=== PATIENT | female | born 1935 | race Caucasian/White ===

== ENCOUNTER 2019-02-10 17:00 | Emergency (ER) | payer MEDICARE, BC ==
[~2019-02-10] VITALS: Ht 162.6 cm; Wt 69.5 kg
[2019-02-10 17:12] VITALS: Ht 162.6 cm; Wt 69.5 kg
[2019-02-10] MEDS ORDERED: ZYRTEC10 MG PO (17:14)
[2019-02-10] MEDS ORDERED: CELEXA10 MG PO (17:14)
[2019-02-10] MEDS ORDERED: ZYLOPRIM100 MG PO (17:14)
[2019-02-10] MEDS ORDERED: FLORAJEN3 CAPS460 MG PO (17:15)
[2019-02-10] MEDS ORDERED: ZOFRAN4 MG PO (17:15)
[2019-02-10] MEDS ORDERED: NEPHRO-VITE RX1 TAB PO (17:15)
[2019-02-10] MEDS ORDERED: RENVELA800 MG PO (17:16)
[2019-02-10] MEDS ORDERED: PROTONIX40 MG PO (17:16)
[2019-02-10] MEDS ORDERED: CARAFATE1 G PO (17:16)
[2019-02-10] MEDS ORDERED: ULTRAM50 MG PO (17:17)
[2019-02-10 17:51] LABS: BASOPHILS 0.6 % (0-2); HEMATOCRIT 35.5 % (36.0-48.0); HEMOGLOBIN 11.2 g/dL (12-16); IMMATURE GRANULOCYTES 0.2 % (0-5); LYMPHOCYTES 22.4 % (15-50); MCH 32.5 pg (26.0-34.0); MCHC 31.5 g/dL (31.0-37.0); MCV 102.9 fL (80.0-100.0); MEAN PLATELET VOLUME 10.8 fL (7.4-10.4); MONOCYTES 9.8 % (2-11); PLATELET COUNT 149 10x3/uL (130-400); RBC 3.45 10x6/uL (4.00-5.40); RDW 15.3 % (11.5-14.5); WBC 6.6 10x3/uL (4.8-10.8)
[2019-02-10 18:01] LABS: ANION GAP 13.1 mmol/L (8-16); BILIRUBIN - TOTAL 0.32 mg/dL (0.2-1.3); CALCIUM 10.5 mg/dL (8.5-10.1); CREATININE - SERUM 5.2 mg/dL (0.6-1.3); POTASSIUM - SERUM 4.1 mmol/L (3.5-5.1); PROTEIN - SERUM 6.7 g/dL (6.4-8.2)
[2019-02-10 19:07] VITALS: BP 120/53
== END 2019-02-10 19:02 | disposition home or self-care (01) ==
LOC: D.ER 17:00
PROVIDERS: Family Medicine
DX: I95.1 Orthostatic hypotension (principal); N18.6 End stage renal disease